=== PATIENT | male | born 1950 ===

== ENCOUNTER 2022-05-23 11:21 | Outpatient (CLI) | payer MEDICARE, SELFPAY ==
--- NOTE | ~2022-05-23 | XR_ITS ---
EXAMINATION: XR foot RT standing 2V DATE: 05/23/2022 11:46 INDICATION: Unspecified osteoarthritis, unspecified site. TECHNIQUE: 2 views of right foot standing were obtained. COMPARISON: None. FINDINGS: Bone alignment is normal. No fracture. There is mild osteoarthritis of first metatarsophala ngeal joint. There are enthesophytes at posterior and plantar aspects of calcaneal tuberosity. IMPRESSION: 1. Mild osteoarthritis of first metatarsophalangeal joint. Reviewed, dictated and finalized at location A.
--- NOTE | ~2022-05-23 | XR_ITS ---
XR knee RT 3V 05/23/2022 11:46 Indication: Right knee pain Procedure: 3 views right knee Comparison: No prior studies for comparison. Findings: There is mild osteoarthritis of the right knee. No fracture, subluxation or dislocation. No significant joint effusion. There is atherosclerosis. Impression: 1: Mild osteoarthritis of the right knee. Reviewed, dictated and finalized at location B. Impression: 1: Mild osteoarthritis of the right knee.
--- NOTE | ~2022-05-23 | XR_ITS ---
EXAMINATION: XR foot LT standing 2V DATE: 05/23/2022 11:46 INDICATION: Unspecified osteoarthritis, unspecified site. TECHNIQUE: 2 views of left foot standing were obtained. COMPARISON: None. FINDINGS: Bone alignment is normal. No fracture. There is mild osteoarthritis of first metatarsophala ngeal joint and talonavicular joint. There are enthesophytes at the posterior and plantar aspects of calcaneal tuberosity. IMPRESSION: 1. Mild polyarticular osteoarthritis. Reviewed, dictated and finalized at location A.
--- NOTE | ~2022-05-23 | XR_ITS ---
EXAMINATION: XR hand BI arthritis min 3V DATE: 05/23/2022 11:46 INDICATION: Unspecified osteoarthritis, unspecified site. TECHNIQUE: 4 views of right hand and 4 views of left hand on a total of 7 radiographs were obtained. COMPARISON: None. FINDINGS: RIGHT HAND: Bone alignment is normal. No fracture. There is mild osteoarthritis of first and third me tacarpophalangeal joints and second-fourth distal interphalangeal joints. LEFT HAND: Bone alignment is normal. No fracture. There is mild osteoarthritis of first metacarpophal angeal joint and second distal interphalangeal joint. IMPRESSION: 1. Mild polyarticular osteoarthritis. Reviewed, dictated and finalized at location A.
--- NOTE | ~2022-05-23 | XR_ITS ---
[id number] 05/23/2022 11:46 Indication: Neck pain Procedure: 4 view cervical spine Comparison: No prior studies for comparison. Findings: There is reversal of cervical lordosis. There is significant disc narrowing and endplate de generative change at C4-5 and C5-6. No prevertebral soft tissue swelling. There is carotid atheroscle rosis. Lung apices are normal. Odontoid process is normal. Lateral masses are normally aligned. Impression: 1: Severe cervical spondylosis. Reviewed, dictated and finalized at location B. Impression: 1: Severe cervical spondylosis.
--- NOTE | ~2022-05-23 | XR_ITS ---
XR knee LT 3V 05/23/2022 11:46 Indication: Left knee pain Procedure: 3 views left knee Comparison: No prior studies for comparison. Findings: There is mild tricompartment osteoarthritis. No fracture or traumatic malalignment. No sign ificant joint effusion. No foreign body. There are surgical clips medial to the proximal tibia. Impression: 1: Mild osteoarthritis of the left knee. Reviewed, dictated and finalized at location B. Impression: 1: Mild osteoarthritis of the left knee.
== END 2022-05-23 11:22 | disposition home or self-care (01) ==
PROVIDERS: PCP Internal Medicine; Visit Provider Internal Medicine
DX: M19.90 Unspecified osteoarthritis, unspecified site (principal); R76.8 Other specified abnormal immunological findings in serum; M19.072 Primary osteoarthritis, left ankle and foot; M19.041 Primary osteoarthritis, right hand; M19.042 Primary osteoarthritis, left hand; M19.071 Primary osteoarthritis, right ankle and foot; M47.892 Other spondylosis, cervical region; M17.0 Bilateral primary osteoarthritis of knee
CPT/HCPCS: 72040; 73130; 73562; 73620